=== PATIENT | female | born 1965 | race Caucasian/White ===

== ENCOUNTER 2023-02-11 11:40 | Emergency (ER) | payer OTHER, SELFPAY ==
--- NOTE | ~2023-02-11 | XR_ITS ---
EXAMINATION: XR thoracic spine 3V DATE: 02/11/2023 12:34 INDICATION: Low thoracic spine pain. TECHNIQUE: 3 views of thoracic spine on 4 radiographs were obtained. COMPARISON: None. FINDINGS: There is 5 degrees dextrocurvature of thoracic spine. Vertebral body heights are normal. Th ere is mildly decreased disc height at multiple levels. There are endplate osteophytes at most levels . Calcified mediastinal and right hilar lymph nodes are consistent with old granulomatous disease. IMPRESSION: 1. Mild thoracic spondylosis. Reviewed, dictated and finalized at location A.
[2023-02-11 11:47] VITALS: BP 138/87; PULSE 69; RESP 16; TEMP 36.3; O2SAT 96
--- NOTE | 2023-02-11 11:52 | ED.BACK ---
HPI - Back Pain/Injury General Chief Complaint: Back Pain/Injury Stated Complaint: center of back pain Time Seen by Provider: 02/11/23 11:52 Source: patient and RN notes reviewed History of Present Illness HPI Narrative: Patient is a 57-year-old female presents to urgent care with complaints of pain to the center of her back. Patient states she does have some radiation of pain around each side of her abdomen. Denies any nausea, vomiting. States that she has had some ?pale color diarrhea over the last couple days? and also some issues with her GERD. Patient states that she does have a primary care doctor but ?does not trust them very much?. Patient states that she has had testing before but her insurance would not cover an abdominal CT with contrast and that is what she believes she needs. Patient is concerned about her pancreas. Patient denies any abdominal pain at this time. States that she has not had any recent weight loss. Denies any urinary symptoms. Patient states the pain started over 1 week ago and she has been taking Aleve, Tylenol, ibuprofen. Denies any recent injury, heavy lifting/pushing/pulling. States that she does have degenerative disc disease in the L5 region. No other acute complaints. No acute distress noted. Patient aware of the plan of care. Some parts of this dictation were generated by voice recognition software and may contain typographical and/or grammatical inaccuracies. Related Data Home Medications Medication Instructions Recorded Confirmed fluoxetine 20 mg capsule mg 02/11/23 Allergies Allergy/AdvReac Type Severity Reaction Status Date / Time No Known Allergies Allergy Verified 02/11/23 11:55 Review of Systems Review of Systems: CONSTITUTIONAL: Denies fever, chills, or sweats. EYES: Denies visual changes, redness, or discharge. ENT: Denies rhinorrhea, congestion, sore throat, or otalgia. CARDIOVASCULAR: Denies chest pain, palpitations, or edema. RESPIRATORY: Denies cough or dyspnea. GASTROINTESTINAL: Denies abdominal pain, nausea, vomiting, or diarrhea. GENITOURINARY: Denies dysuria or hematuria. SKIN: Denies rash or itching. MUSCULOSKELETAL: Reports of midback pain NEUROLOGIC: Denies headache, numbness, or weakness. All other systems reviewed are negative, except as documented in HPI. [facility] Comments At the time of my signature, I reviewed and agree with the nursing past medical, surgical, social, and family history. There is no relevant family history pertinent to the patient complaint. Exam Narrative: GENERAL: This is a well-nourished, well-developed patient, in no apparent distress. HEAD: normocephalic, atraumatic. EYES: PERRL. Sclera clear/white. Vision is grossly intact. EARS: External ears normal NOSE: External nose normal with no obvious nasal discharge, nares without redness, no rhinorrhea. THROAT: Mucous membranes moist NECK: Neck supple RESPIRATORY: Clear to auscultation. Breath sounds equal bilaterally. No wheezes, rales, or rhonchi. GASTROINTESTINAL: Abdomen soft, non-tender, nondistended. No guarding. SKIN: warm, intact with no suspicious lesions or rash, good texture and turgor. NEURO: awake, alert, and oriented to person, place and time. There were no obvious focal neurologic abnormalities. EXTREMITIES: No clubbing, cyanosis, or edema. No joint tenderness, effusion, or edema noted. No calf tenderness. Negative Homans sign bilaterally. BACK: Negative bilateral CVA tenderness. Mild to moderate midthoracic tenderness directly to the spine without crepitus, ecchymosis or edema Course Course Level of Care: Express Care Visit Vital Signs Vital signs: Vital Signs Temperature 97.3 F L 02/11/23 11:47 Pulse Rate 69 02/11/23 11:47 Respiratory Rate 16 02/11/23 11:47 Blood Pressure 138/87 02/11/23 11:47 Pulse Oximetry 96 02/11/23 11:47 Oxygen Delivery Room Air 02/11/23 11:47 Temperature 97.3 F L 02/11/23 11:47 Pulse Rate 69
== END 2023-02-11 12:51 | disposition home or self-care (01) ==
PROVIDERS: Emergency Provider Nurse Practitioner Family
DX: M54.6 Pain in thoracic spine (principal)
CPT/HCPCS: 72072; 81003; 99213; G0463

== ENCOUNTER 2023-08-14 11:18 | Emergency (ER) | payer OTHER, SELFPAY ==
[2023-08-14 11:28] VITALS: BP 148/94; PULSE 68; RESP 18; TEMP 36.3; O2SAT 97
--- NOTE | 2023-08-14 11:38 | ED.URI ---
HPI - URI/Sore Throat General Chief Complaint: Upper Respiratory Infection Stated Complaint: sore throat/ears Time Seen by Provider: 08/14/23 12:00 Source: patient and RN notes reviewed Mode of arrival: ambulatory Limitations: no limitations History of Present Illness HPI Narrative: 58-year-old female presents concern for sore throat, nasal congestion, ear pain, cough. Reports her son was diagnosed with strep throat. She reports taking [id number] medications with little relief. MD elicited complaint: sore throat Related Data Home Medications Medication Instructions Recorded Confirmed fluoxetine 20 mg capsule mg 02/11/23 Allergies Allergy/AdvReac Type Severity Reaction Status Date / Time No Known Allergies Allergy Verified 02/11/23 11:55 Review of Systems Review of Systems: CONSTITUTIONAL: Denies malaise, chills, sweats, or fever. EYES: Denies visual changes, redness, or discharge. ENT: Reports rhinorrhea, congestion, otalgia and sore throat. CARDIOVASCULAR: Denies chest pain, palpitations, or edema. RESPIRATORY: Reports cough. Denies dyspnea. GASTROINTESTINAL: Denies abdominal pain, nausea, vomiting, diarrhea SKIN: Denies rash or itching. MUSCULOSKELETAL: Denies myalgia. NEUROLOGIC: Denies headache. All systems reviewed & are unremarkable except as noted in HPI and below [facility] Comments At time of signature, agree with nursing past medical, surgical, social and family history. There is no relevant family history pertinent to the presenting complaint Exam Narrative: GENERAL: Well-appearing, well-nourished, and in no acute distress. HEAD: Normocephalic EYES: PERRLA, conjunctivae clear ENT: Nares clear, turbinates edematous and erythematous, clear discharge. Mucous membranes moist. TM pearly miguel with dull light reflex bilaterally; no tragal tenderness. Oropharynx erythematous without lesions. Tonsils not enlarged and without exudate, no drooling, no hoarseness, no trismus, uvula midline. NECK: Supple. No lymphadenopathy CHEST: Expiratory wheeze throughout, otherwise clear to auscultation, breath sounds equal. No rhonchi, rales, or stridor. No respiratory distress, speaks in full sentences. HEART: Regular rate and rhythm. No murmur heard. SKIN: Warm, dry, no rash. NEURO: Alert and oriented x3. PSYCH: Normal mood and affect Course Course Emergency Course: Patient is aware of diagnosis, understands and agrees to treatment plan. Anticipatory guidance given. Patient agrees to follow-up as directed and is aware of reasons to seek care at the emergency department. Portions of this record may have been created with voice recognition software Level of Care: Express Care Visit Vital Signs Vital signs: Vital Signs Temperature 97.4 F L 08/14/23 11:28 Pulse Rate 68 08/14/23 11:28 Respiratory Rate 18 08/14/23 11:28 Blood Pressure 148/94 H 08/14/23 11:28 Pulse Oximetry 97 08/14/23 11:28 Oxygen Delivery Room Air 08/14/23 11:28 Temperature 97.4 F L 08/14/23 11:28 Pulse Rate 68 08/14/23 11:28 Respiratory Rate 18 08/14/23 11:28 Blood Pressure 148/94 H 08/14/23 11:28 Pulse Oximetry 97 08/14/23 11:28 Oxygen Delivery Room Air 08/14/23 11:28 Reviewed. MDM - URI/Sore Throat MDM Narrative Medical decision making narrative: Differential diagnosis considered: Bethea virus, strep pharyngitis, allergic rhinitis, upper respiratory tract infection, sinusitis, rhinosinusitis, nasopharyngitis. viral pharyngitis, otitis media, otitis externa, pneumonia, bronchitis, viral cough syndrome, viral syndrome, and influenza. Exam findings show no acute concerns or changes; patient is non-toxic appearing and is in no distress. Patient is appropriate for outpatient treatment and follow-up. Lab Data Attestation: I reviewed the patient's lab results. Labs: Strep Screen Presumptive Negative *(Reference Range: Negative)*
== END 2023-08-14 12:00 | disposition home or self-care (01) ==
PROVIDERS: Emergency Provider Nurse Practitioner
DX: J40 Bronchitis, not specified as acute or chronic (principal)
CPT/HCPCS: 87081; 87880; 99213; G0463

== ENCOUNTER 2023-11-14 16:59 | Emergency (ER) | payer OTHER, SELFPAY ==
--- NOTE | ~2023-11-14 | XR_ITS ---
EXAMINATION: XR chest 2V DATE: 11/14/2023 17:25 INDICATION: Cough. TECHNIQUE: Frontal and lateral views of the chest were obtained. COMPARISON: Thoracic spine radiographs 02/11/2023 FINDINGS: Calcified pulmonary nodules and calcified hilar and mediastinal lymph nodes are consistent with old granulomatous disease. There is mild scarring at the lung apices. No pleural effusion or pne umothorax. The heart size is normal. Surgical clips in the right upper quadrant are likely from jose cystectomy. IMPRESSION: 1. No acute cardiopulmonary disease. Reviewed, dictated and finalized at location E. ECTING SUPERVISOR
[2023-11-14 17:06] VITALS: BP 143/87; PULSE 75; RESP 16; TEMP 36.2; O2SAT 97
--- NOTE | 2023-11-14 17:13 | ED.GENADULT ---
HPI - General Adult General Chief complaint: Upper Respiratory Infection Stated complaint: Chest Tightness/Cough Source: patient, RN notes reviewed and old records reviewed Mode of arrival: ambulatory Limitations: no limitations History of Present Illness HPI narrative: 58-year-old female presents to [facility] with complaints cough, chest congestion and general malaises that started Saturday. Patient states did a virtual visit and was told to use Flonase and albuterol inhaler which patient states she had a repeat using from previous visits when she had bronchitis. Patient states then today he called her primary care physician, patient states primary care physician told her to come to urgent care for chest x-ray and prednisone. Related Data Home Medications Medication Instructions Recorded Confirmed fluoxetine 20 mg capsule 20 mg PO DAILY 02/11/23 11/14/23 Allergies Allergy/AdvReac Type Severity Reaction Status Date / Time No Known Allergies Allergy Verified 02/11/23 11:55 Review of Systems Constitutional: Constitutional: Reports no additional constitutional complaints, Denies body ache(s), Denies chills, Denies fatigue, Denies fever(s) and Denies headache(s) Eyes: Eyes: Reports no additional eye complaints and Denies blurry vision ENT: Reports system reviewed and no additional complaints, except as documented, Denies vertigo, Denies dizziness, Denies ear discharge, Denies otalgia, Denies facial pain, Denies headache(s), Reports nasal congestion, Denies nasal discharge, Denies sinus pain, Denies sinus pressure and Denies sore throat Cardiovascular: Cardiovascular: Reports no additional cardiovascular complaints, Denies chest pain, Denies chest pain at rest, Denies rapid heart rate and Denies dyspnea Respiratory: Respiratory: Reports no additional respiratory complaints, Reports chest congestion, Reports cough, Denies pain on inspiration, Denies pain with cough and Denies dyspnea Gastrointestinal: Gastrointestinal: Denies abdominal pain, Denies diarrhea, Denies nausea and Denies vomiting Integumentary/Breasts: Skin/Breast: Denies rash Neurologic: Reports system reviewed and no additional complaints, except as documented, Denies vertigo, Denies dizziness and Denies headache(s) Endocrine: Endocrine: Denies fatigue [facility] Comments At the time of my signature, I reviewed and agree with the nursing past medical, surgical, social, and family history. There is no relevant family history pertinent to the patient complaint. Exam Const: General: cooperative, healthy appearing, no acute distress and well nourished Nutritional Appearance: well nourished Orientation/consciousness: patient oriented x3 Limitations: no limitations HENMT: Head: normal to inspection and normocephalic Ears: external ears normal, TM's normal bilaterally, EAC's normal and mastoids normal Face/Nose/Sinus: normal facial exam Face and sinus: normal facial exam Mouth: Yes Normal oral and palatal mucosa present, Yes oropharynx normal and Yes moist mucous membranes Throat: posterior oropharynx normal, tonsils normal, uvula midline, normal tonsils, no peritonsillar masses, normal posterior oropharynx, no postnasal drainage and no uvular edema Eyes: General: appearance normal, both eyes and all related structures Sclera: sclerae normal Pupils: Equal, round and reactive pupils present Resp: Effort & Inspection: normal respiratory effort, able to speak in complete sentences, no audible wheezes, no cough, no respiratory distress and no retractions Auscultation: clear to auscultation bilaterally, no crackles, no rales, no rhonchi and wheezes inspiratory wheezes and upper bilaterally Cardio: Rate: regular rate Rhythm: regular rhythm Skin: General skin exam: normal color and no rashes or lesions noted Neuro: General: patient oriented x3 Cranial nerves: Yes Equal, round and reactive pupils present Psych: Appearance: grossly normal Mental Status: mental status
[2023-11-14 17:15] VITALS: BP 143/87; PULSE 75; RESP 16; TEMP 36.2; O2SAT 97
== END 2023-11-14 17:38 | disposition home or self-care (01) ==
PROVIDERS: Emergency Provider Registered Nurse
DX: J40 Bronchitis, not specified as acute or chronic (principal); Z20.822 Contact with and (suspected) exposure to COVID-19
CPT/HCPCS: 71046; 87426; 87804; 99213; G0463

== ENCOUNTER 2025-02-03 13:08 | Emergency (ER) | payer OTHER, SELFPAY ==
--- OUTSIDE RECORDS SUMMARY | 2025-02-03 13:17 | XMS_ITS | Referral Summary ---
Author Organization [facility] Address [address] [place] [address] Care Team Providers Care Freight Broker Agent Name Role Phone Cornel Choudhury DO Primary Care Provider [phone] Allergies Active Allergy Reactions Criticality Noted Date Comments Paroxetine Medications naproxen (NAPROSYN) 500 mg tablet Take 1 tablet (500 mg total) by mouth 2 (two) times a day as needed for pain Take with food. 30 tablet 02/18/2023 Active cyclobenzaprine (FLEXERIL) 10 mg tablet Take 1 tablet (10 mg total) by mouth 2 (two) times a day as needed for muscle spasms 20 tablet 02/18/2023 Active Active Problems Problem Noted Date Diagnosed Date Concussion 10/28/2017 Calculus of gallbladder 03/24/2014 Overview (12/13/2016): Gallstones Adiposity 07/16/2013 Overview (12/12/2016): Obese Depression 07/16/2013 Overview (12/12/2016): Depression Current smoker 07/16/2013 Overview (12/14/2016): Smoker Immunizations Immunization Administration Dates Next Due Influenza, Split 07/16/2013 Social History Tobacco Use Types Packs/Day Years Used Date Smoking Tobacco: Every Day Alcohol Use Standard Drinks/Week Comments Yes 0 (1 standard drink = 0.6 oz pur e alcohol) Personal Safety Answer Date Recorded Have you ever been in or are you currently in a harmful physical or emotional relationship or is someone making you feel afraid or unsafe? Denies 02/18/2023 Comments No Sex and Gender Information Value Date Recorded Sex Assigned at Not on file Legal Sex Female 4:13 PM MANAGER SALES Gender Identity Not on file Sexual Orientation Not on file Last Filed Vital Signs Vital Sign Reading Time Taken Comments Blood Pressure 124/84 02/18/2023 1:21 PM CDT Pulse 66 02/18/2023 1:21 PM CDT Temperature 36.7 C (98 F) 02/18/2023 1:21 PM CDT Respiratory Rate 18 02/18/2023 1:21 PM CDT Oxygen Saturation 96% 02/18/2023 1:21 PM CDT Inhaled Oxygen Concentration - - Weight 99.8 kg (220 lb) 02/18/2023 10:15 AM CDT Height 167.6 cm (5' 6) 02/18/2023 10:15 AM CDT Body Mass Index 35.51 02/18/2023 10:15 AM CDT Plan of Treatment Not on file Procedures Procedure Name Priority Date/Time Associated Diagnosis Comments COLONOSCOPY REPORT 04/03/2017 DIGITAL MAMMOGRAPHY Routine 07/21/2013 9 :19 AM MANAGER SALES from Last 3 Months or Most Recently Relevant to Health Maintenance Results * COLONOSCOPY REPORT (04/03/2017) Anatomical Region Laterality Modality Other us Provider Scanning GI PROCEDURE ORDERABLES Final Result * DIGITAL MAMMOGRAPHY (07/21/2013 9:19 AM MANAGER SALES) Anatomical Region Laterality Modality Breast Mammography 07/21/2013 9:19 AM MANAGER SALES Narrative 07/21/2013 10:21 PM MANAGER SALES MB Performed by: dr Mason Mamm Bi Acc#: [id number] DATE OF EXAM: Jul 21 2013 CLINICAL HISTORY: Routine screening. RESULT: Superior-inferior and lateral oblique views of each breast were obtained using the low dose technique. There is a mild amount of fibroglandular tissue, especially in the retroareolar area. There is no skin thickening, retraction or pathological calcification. Digital technology was employed plus computer-aided detection software (R2) was utilized in interpretation of these images. This facility utilizes a reminder system to notify patients of yearly mammograms. IMPRESSION: ESSENTIALLY NEGATIVE MAMMOGRAM UNCHANGED FROM PRIOR STUDY OF 09/27/11. BI-RADS CATEGORY 1 - NEGATIVE Interpreting Physician: DAVID FERREIRA M.D. Read on: Jul 21 2013 10:49A Transcribed by: [email or web address] On: Jul 21 2013 10:49A Approved Electronically by: DAVID FREREIRA M.D. on: Jul 21 2013 10:21P Ordering DR: DR CANDI HARVEY Attending DR: CANDI JIMENEZ Procedure Note Provider, MD Josy - 01/10/2017 FARHEEN Performed by: Screening Mamm Bi Acc#: [id number] DATE OF EXAM: Jul 21 2013 CLINICAL HISTORY: Routine screening. RESULT: Superior-inferior and lateral oblique views of each breast were obtainedusing the low dose technique. There is a mild amount of fibroglandulartissue, especially in the retroareolar area. There is no skin thickening,retraction or pathological calcification. Digital technology was employedplus computer-aided detection software (R2) was utilized in interpretationof these images. This facility utilizes a reminder system to notifypatients of yearly mammograms. IMPRESSION: ESSENTIALLY NEGATIVE MAMMOGRAM UNCHANGED FROM PRIOR STUDY OF 09/27/11.BI-RADS CATEGORY 1 - NEGATIVE Interpreting Physician: DAVID FERREIRA M.D. Read on: Jul 21 201310:49A Transcribed by: [email or web address] On: Jul 21 2013 10:49A Approved Electronically by: DAVID FERREIRA M.D. on: Jul 21 201310:21P Ordering DR: DR CANDI HARVEY Attending DR: CANDI JIMENEZ us Historical Provider IMLeny MAMMO PROCEDURES Jeny l Result from Last 3 Months or Most Recently Relevant to Health Maintenance Insurance [employer] [facility] HMO/POS Care Teams Freight Broker Agent Relationship Specialty Start Date End Date Cornel Choudhury DO [address] [place] [id number] PCP - General Internal Medicine 02/18/23
--- OUTSIDE RECORDS SUMMARY | 2025-02-03 13:17 | XMS_ITS | Clinical Summary ---
Author Organization [facility] Address [address] [place] [address] Care Team Providers Care Needle Maker Name Role Phone Elder Rasheed MD Primary Care Provider [phone] Source Comments [facility],non-owned Affiliates and Associated Physician Practices is amultiple site organization consisting of ambulatory clinics and hospital sitesin [place], [place], [place] and [place]. This disclosure is being madepursuant to the Care Everywhere program and may not contain all information available regarding this patient. Last updated 18.[facility] Allergies Active Allergy Reactions Criticality Noted Date Comments Paroxetine Unknown 10/02/2021 Medications * Be aware that medications may not be up to date on this document. Alwaysverify current medications with the patient. amphetamine-dextro amphetamine XR 24hr (ADDERALL XR) 20 MG capsule 07/10/2020 Activ e buPROPion XL 24hr (WELLBUTRIN-XL) 150 MG tablet 07/10/2020 Activ e Active Problems No known active problems Social History Tobacco Use Types Packs/Day Years Used Date Smoking Tobacco: Former Cigarettes Q uit: 06/09/2018 Smokeless Tobacco: Never Alcohol Use Standard Drinks/Week Comments No 0 (1 standard drink = 0.6 oz pur e alcohol) Comments Unknown Sex and Gender Information Value Date Recorded Sex Assigned at Female 10/02/2021 10:51 AM BUNCH BREAKER MACHINE OPERATOR Legal Sex Female 12:26 PM CDT Gender Identity Female 10/02/2021 10:51 AM BUNCH BREAKER MACHINE OPERATOR Sexual Orientation Straight 10/02/2021 10 :51 AM BUNCH BREAKER MACHINE OPERATOR Last Filed Vital Signs Vital Sign Reading Time Taken Comments Blood Pressure 140/88 10/02/2021 2:47 PM BUNCH BREAKER MACHINE OPERATOR Pulse 95 10/02/2021 2:47 PM BUNCH BREAKER MACHINE OPERATOR Temperature 36.9 C (98.4 F) 10/02/2021 2:47 PM BUNCH BREAKER MACHINE OPERATOR Respiratory Rate 18 10/02/2021 2:47 PM BUNCH BREAKER MACHINE OPERATOR Oxygen Saturation 99% 10/02/2021 2:47 PM BUNCH BREAKER MACHINE OPERATOR Inhaled Oxygen Concentration - - Weight 99.8 kg (220 lb) 10/02/2021 2:47 PM BUNCH BREAKER MACHINE OPERATOR Height 167.6 cm (5' 6) 10/02/2021 2:47 PM BUNCH BREAKER MACHINE OPERATOR Body Mass Index 35.51 10/02/2021 2:47 PM BUNCH BREAKER MACHINE OPERATOR Plan of Treatment Health Maintenance Due Date Last Done Comments COLOGUARD (AGES 45-75) - COL ON CA SCREENING 1963 COLON MONITORING 1963 COLONOSCOPY - COLON CA SCREENING 1963 CT COLONOGRAPHY - COLON CA SCREENING 1963 Colorectal Cancer Screening 1963 FIT - COLON CA SCREENING 1963 FLEX SIG - COLON CA SCREENING 1963 LIPID TESTING 1963 MAMMOGRAM 1963 PAP SMEAR 1963 HIV SCREENING 1978 HEPATITIS C SCREENING 04/08/1981 DTAP/TDAP/TD VACCINES (1 - Tdap) 1982 PNEUMOCOCCAL VACCINE 50+ (1 of 1 - PCV) 2013 ZOSTER VACCINE (1 of 2) 2013 SCREENING FOR DIABETES 10/02/2021 05/08/2013 COVID-19 VACCINE (4 - 2023-2 5 season) 2024 07/31/2021, 11/29/2020, 11/08/2020 DEPRESSION SCREENING 09/09/2024 INFLUENZA VACCINE (Season Ended) 2025 07/16/2013 Respiratory Syncytial Virus (RSV) Vaccine Pt: or over 60 yrs (1 - 1-dose 75+ series) 2038 HEPATITIS B VACCINE Aged Out No longe r eligible based on patient's age to complete this topic HIB VACCINE Aged Out No longer eligi ble based on patient's age to complete this topic HPV VACCINE Aged Out No longer eligi ble based on patient's age to complete this topic MENINGOCOCCAL (Group B) VACCINE SHARED DECISION-MAKING Aged Out No longer eligible based on patient's age to complete this topic MENINGOCOCCAL GROUPS A/C/Y/W VACCINE Aged Out No longer eligible b ased on patient's age to complete this topic Procedures Procedure Name Priority Date/Time Associated Diagnosis Comments COMPREHENSIVE METABOLIC PANEL STAT 05/08/2013 9:18 AM CDT from Last 3 Months or Most Recently Relevant to Health Maintenance Results * (ABNORMAL) COMPREHENSIVE METABOLIC PANEL (05/08/2013 9:18 AM CDT) Glucose 98 74 - 106 mg/dL 05/08/2013 11:19 AM CDT [facility] Sodium 141 136 - 145 mmol/L 05/08/2013 11:19 AM CDT [facility] Potassium 3.8 3.5 - 5.1 mmol/L 05/08/2013 11:19 AM CDT [facility] Chloride 110(H) 98 - 107 mmol/L 05/08/2013 11:19 AM CDT [facility] CO2 22 22 - 31 mmol/L 05/08/2013 11:19 AM CDT [facility] Calcium 8.4(L) 8.5 - 10.1 mg/dL 05/08/2013 11:19 AM CDT [facility] Anion Gap 9 5 - 15 mmol/L 05/08/2013 11:19 AM CDT [facility] BUN 7 7 - 21 mg/dL 05/08/2013 11:19 AM CDT [facility] Creatinine 0.49(L) 0.50 - 1.30 mg/dL 05/08/2013 11:19 AM CDT [facility] eGFR by MDRD >60 >60 ml/min/1.7 3m2 05/08/2013 11:19 AM CDT [facility] eGFR by MDRD >60 >60 ml/min/1.7 3m2 05/08/2013 11:19 AM CDT [facility] Alkaline Phosphatase 69 38 - 126 U/L 05/08/2013 11:19 AM CDT [facility] ALT 46 12 - 78 U/L 05/08/2013 11:19 AM CDT [facility] AST 19 5 - 40 U/L 05/08/2013 11:19 AM CDT [facility] Protein Total 7.1 6.4 - 8.2 gm/dL 05/08/2013 11:19 AM CDT [facility] Albumin 3.8 3.4 - 5.0 gm/dL 05/08/2013 11:19 AM CDT [facility] Bilirubin Total 0.4 0.2 - 1.0 mg/dL 05/08/2013 11:19 AM CDT [facility] Blood BLOOD SPECIMEN / Unknown 05/08/2013 9:18 AM CDT 05/08/2013 11:02 AM CDT us Dylon Guzman MD LAB - CHEMISTRY ORDERA BLES Final Result [facility] [address] [place] [address] from Last 3 Months or Most Recently Relevant to Health Maintenance Insurance [employer] Care Teams Needle Maker Relationship Specialty [place] [id number] [address] [facility] [address] [place] [address] PCP - General Internal Medicine 05/08/13
--- OUTSIDE RECORDS SUMMARY | 2025-02-03 13:17 | XMS_ITS | Clinical Summary ---
Author Organization [facility] Address [address] [place] [address] Care Team Providers Care Coding Educator Name Role Phone Cornel Choudhury DO Primary Care Provider [phone] Allergies Active Allergy Reactions Criticality Noted Date [...] Administration Dates Next Due Influenza, Split 07/16/2013 Surgical History Surgery Date Site/Laterality Comments SECTION section OTHER SURGICAL HISTORY section x 3 CHOLECYSTECTOMY 2014 Cholecystectomy Medical History Medical History Date Comments Concussion Family History Medical History Relation Name Comments Colon cancer Father Cancer, colon; Hypertension Father Hypertension; Stroke Father Stroke; Diabetes Mother Diabetes mellit us; Stroke Mother Stroke; Relation Name Status Comments Father Mother Social History Tobacco Use Types Packs/Day Years [...] on file Legal Sex Female 4:13 PM [employer] Gender Identity Not on file Sexual Orientation Not on file Obstetrics History Last Filed Vital Signs Vital Sign Reading [...] 02/18/2023 10:15 AM CDT Plan of Treatment Health Maintenance Due Date Last Done Comments Cervical Cancer Screening 1963 Depression Screening 1963 Hepatitis C Screening 1963 DTaP/Tdap/Td Vaccine (1 - Tdap) 1974 Hepatitis B Screening 1981 Regular Well Visit/Exam 18-64 1981 Pneumococcal vaccine <65 (1 of 2 - PCV) 1982 Zoster Vaccine (1 of 2) 2013 Breast Cancer Screening-Mammogram 07/21/2014 013 Covid-19 Vaccine (2023-2 5 season) 2024 07/31/2021, 11/29/2020, 11/08/2020 Influenza Vaccine (Season Ended) 2025 06/01/2021, 07/20/2020, 07/16/2013 Colon Cancer Screening-Colonoscopy 04/03/20272016 Colon Cancer Screening-CT Colonography Discontinued 04/03/2017 Colon Cancer Screening-DNA Stool Discontinued 04/03/20 17 Colon Cancer Screening-FIT Discontinued 04/03/2017 Colon Cancer Screening-Sigmoidoscopy Discontinued 03/10 Procedures Procedure Name Priority Date/Time Associated Diagnosis Comments COLONOSCOPY REPORT 04/03/2017 DIGITAL MAMMOGRAPHY Routine 07/21/2013 9 :19 AM [employer] from Last 3 Months or Most Recently Relevant to Health Maintenance Results * COLONOSCOPY REPORT (04/03/2017) Anatomical Region Laterality Modality Other us Provider Scanning GI PROCEDURE ORDERABLES Final Result * DIGITAL MAMMOGRAPHY (07/21/2013 9:19 AM [employer]) Anatomical Region Laterality Modality Breast Mammography 07/21/2013 9:19 AM [employer] Narrative 07/21/2013 10:21 PM [employer] MB Performed by: dr Mason Mamm Bi Acc#: [id number] DATE OF EXAM: Jul 21 2013 CLINICAL [...] by: DAVID FERREIRA M.D. on: Jul 21 2013 10:21P Ordering DR: DR CANDI HARVEY Attending : CANDI JIMENEZ Procedure Note Provider, MD Josy - 01/10/2017 FARHEEN Performed by: dr Screening Mamm Bi Acc#: [id number] DATE OF EXAM: Jul 21 2013 CLINICAL [...] DR CANDI HARVEY Attending DR: CANDI JIMENEZ Historical Provider MD CONN MAMMO PROCEDURES Jeny l Result from Last 3 Months or Most Recently Relevant to Health Maintenance Insurance [facility] HMO/POS Care Teams Coding Educator Relationship Specialty Start Date End Date Cornel Choudhury DO [address] [place] [id number] PCP - General Internal Medicine 02/18/23
[2025-02-03 13:20] VITALS: BP 151/86; PULSE 77; RESP 20; TEMP 37.1; O2SAT 95
[2025-02-03 13:35] LABS: EDSTREPNEGPOS1 Negative (Negative)
--- NOTE | 2025-02-03 13:43 | ED_ITS ---
HPI - Ear Problem General Chief complaint: Ear Stated complaint: sorethroat,lt ear pain Time Seen by Provider: 02/03/25 13:43 Source: patient Mode of arrival: ambulatory Limitations: no limitations History of Present Illness HPI Narrative: 59-year-old female presents with complaint of sore throat for the past 2-3 days. Afebrile. Reports left ear pain for 1 week. No changes to hearing. Denies congestion and cough. Reports some postnasal drainage. All systems reviewed and negative except as noted above. Related Data Home Medications ?Medication ?Instructions ?Recorded ?Confirmed ?Last Taken ?Type fluoxetine 20 mg capsule 20 mg PO DAILY 02/11/23 11/14/23 Unknown History Allergies Allergy/AdvReac Type Severity Reaction Status Date / Time No Known Allergies Allergy Verified 02/03/25 13:28 Review of Systems Review of Systems: CONSTITUTIONAL: Denies fever, chills, or sweats. EYES: Denies visual changes, redness, or discharge. ENT: denies rhinorrhea, congestion. Reports sore throat, left ear pain CARDIOVASCULAR: Denies chest pain, palpitations, or edema. RESPIRATORY: Denies cough or dyspnea. GASTROINTESTINAL: Denies abdominal pain, nausea, vomiting, or diarrhea. GENITOURINARY: Denies dysuria or hematuria. SKIN: Denies rash or itching. MUSCULOSKELETAL: Denies back pain, joint pain, or myalgia. NEUROLOGIC: Denies headache, numbness, or weakness. PSYCHIATRIC: Denies anxiety or depression. All other systems reviewed are negative, except as documented in HPI. PMFSH Comments At time of signature, agree with nursing past medical, surgical, social and family history. There is no relevant family history pertinent to the presenting complaint. Exam Narrative: GENERAL: This is a well-nourished, well-developed patient, in no apparent distress. HEAD: normocephalic, atraumatic. EYES: PERRL. Sclera clear/white. Vision is grossly intact. EARS: External ears normal, auditory canals clear and without drainage, left TM is erythematous with fluid. Right TM is normal. No perforation bilaterally. Hearing grossly intact. NOSE: External nose normal with no obvious nasal discharge, nares without redness, no rhinorrhea. THROAT: Mucous membranes moist, Postnasal drainage with mild erythema. Mild swelling with no exudates. NECK: Neck supple, non-tender without lymphadenopathy, masses or thyromegaly. CARDIOVASCULAR: Regular rate and rhythm without murmurs, gallops, or rubs. RESPIRATORY: Clear to auscultation. Breath sounds equal bilaterally. No wheezes, rales, or rhonchi. SKIN: warm, Dry, intact with no suspicious lesions or rash, good texture and turgor. NEURO: awake, alert, and oriented to person, place and time. There were no obvious focal neurologic abnormalities. EXTREMITIES: No joint tenderness, effusion, or edema noted. Course Course Level of Care: Express Care Visit Vital Signs Vital signs: Vital Signs Temperature 37.1 C 02/03/25 13:20 Pulse Rate 77 02/03/25 13:20 Respiratory Rate 20 02/03/25 13:20 Blood Pressure 151/86 H 02/03/25 13:20 Pulse Oximetry 95 02/03/25 13:20 Oxygen Delivery Room Air 02/03/25 13:20 Temperature 37.1 C 02/03/25 13:20 Pulse Rate 77 02/03/25 13:20 Respiratory Rate 20 02/03/25 13:20 Blood Pressure 151/86 H 02/03/25 13:20 Pulse Oximetry 95 02/03/25 13:20 Oxygen Delivery Room Air 02/03/25 13:20 Reviewed Medical Decision Making MDM Narrative Medical decision making narrative: negative rapid strep. Strep culture ordered. Will treat patient with antibiotic for left serous otitis media. Patient agrees with plan of care. Patient is well-appearing, nontoxic. Vital Signs Vital Signs: Vital Signs Temperature 37.1 C 02/03/25 13:20 Pulse Rate 77 02/03/25 13:20 Respiratory Rate 20 02/03/25 13:20 Blood Pressure 151/86 H 02/03/25 13:20 Pulse Oximetry 95 02/03/25 13:20 Oxygen Delivery Room Air 02/03/25 13:20 Temperature 37.1 C 02/03/25 13:20 Pulse Rate 77 02/03/25 13:20 Respiratory Rate 20 02/03/25 13:20 Blood Pressure 151/86 H 02/03/25 13:20 Pulse Oximetry 95 02/03/25 13:20 Oxygen Delivery Room Air 02/03/25 13:20 Lab Data Labs: Lab Results 02/03/25 Range/Units 13:34 POC Grp A Strep Screen Negative (Negative) Discharge Plan Discharge Clinical Impression: Acute serous otitis media of left ear, Acute pharyngitis Patient Disposition: Home Condition: Stable Instructions: Antibiotic Form, Fluid In The Ear (Serous Otitis Media) (ED) Additional Instructions: Take antibiotic as prescribed until gone. Taking [id number] antihistamine daily such as Claritin or Zyrtec. Take Tylenol or ibuprofen every 6-8 hours as needed for pain. See your doctor if symptoms are not improving. Patient Language: Micronesian Prescriptions: New amoxicillin 875 mg tablet 875 mg PO Q12H 10 Days Qty: 20 0RF No Action fluoxetine 20 mg capsule 20 mg PO DAILY albuterol sulfate 90 mcg/actuation HFA aerosol inhaler 2 puff INHALATION QID PRN (Reason: shortness of breath or wheezing) Qty: 8.5 0RF Follow-up/Referrals: Macey,Cornel Davila [Other] Time of Disposition: 13:49
== END 2025-02-03 13:54 | disposition home or self-care (01) ==
PROVIDERS: Emergency Provider Nurse Practitioner Family
DX: H65.02 Acute serous otitis media, left ear (principal); J02.9 Acute pharyngitis, unspecified
CPT/HCPCS: 87081; 87880; 99213; G0463